=== PATIENT | female | born 1990 | race Two or more races ===

== ENCOUNTER 2017-04-17 21:29 | Emergency (ER) | payer OTHER | END 2017-04-18 00:55 | disposition home or self-care (01) | LOC: FTE 21:29 | DX: J02.9 Acute pharyngitis, unspecified (principal) | CPT/HCPCS: 99283; Z7502 ==

== ENCOUNTER 2018-03-20 22:18 | Emergency (ER) | payer OTHER ==
[2018-03-21 01:30] LABS: URINE BLOOD (Dip) POC 3+ (NEGATIVE); URINE GLUCOSE (Dip) POC Negative (NEGATIVE); URINE KETONES (Dip) POC Trace (NEGATIVE); URINE LEUKOCYTE EST (Dip) POC 2+ (NEGATIVE); URINE NITRITE (Dip) POC Negative (NEGATIVE); URINE TOTAL PROTEIN POC 2+ (NEGATIVE)
[2018-03-21] MEDS: ONDANSETRON (ODT) 4 MG TAB ODT (01:37)
[2018-03-21] MEDS: HYDROCODONE/APAP (5/325) TAB PO (01:37)
== END 2018-03-21 03:12 | disposition home or self-care (01) ==
LOC: FTE 22:18
DX: N39.0 Urinary tract infection, site not specified (principal)
CPT/HCPCS: 72100; 81003; 81025; 99283-25